=== PATIENT | female | born 2000 | race Asian ===

== ENCOUNTER 2025-03-09 16:29 | Emergency (ER) | payer OTHER, SELFPAY ==
[2025-03-09 16:44] VITALS: BP 136/61; PULSE 72; RESP 16; TEMP 36.7; O2SAT 100; BMI 23.4
== END 2025-03-09 18:08 | disposition left against medical advice (07) ==
PROVIDERS: Emergency Provider Emergency Medicine
DX: Z53.21 Procedure and treatment not carried out due to patient leaving prior to being seen by health care provider (principal)
CPT/HCPCS: 99281